=== PATIENT | male | born 1935 | race Caucasian/White ===

== ENCOUNTER → 2016-08-15 | Outpatient (CLI) | payer OTHER ==
[~2016-08-15] MED LIST: AMLO-114 PO; GLUC1TAB8 PO; IBUP-1428 PO; LOSA1TAB38 PO; NF656 TD; TRIA37.5 PO; ULT/50 PO
[2016-08-15 13:41] LABS: ESTIMATED AVERAGE GLUCOSE 123 mg/dl; HA1C FLAG Normal (Normal)
[2016-08-15 15:57] LABS: ALT/SGPT 33 U/L (12-78); AST/SGOT 20 U/L (15-37); BLOOD UREA NITROGEN 17 mg/dl (7-18); BUN/CREATININE RATIO 16.7 (10-20); CALCIUM 9.3 mg/dl (8.5-10.1); CARBON DIOXIDE 28 mmol/L (21-32); CHLORIDE 105 mmol/L (98-107); GLUCOSE 95 mg/dl (70-99); POTASSIUM 3.8 mmol/L (3.5-5.1); SODIUM 141 mmol/L (136-145)
[2016-08-15 16:04] LABS: CHOLESTEROL 197 mg/dl (0-200); CHOLESTEROL/HDL RATIO 4.8; HDL CHOLESTEROL 41 mg/dl; LDL CHOLESTEROL CALCULATED 139 mg/dl; TRIGLYCERIDES 85 mg/dl (0-150); VERY LOW DENSITY LIPOPROT CALC 17 mg/dl
--- NOTE | 2016-08-21 10:16 | CODING QUERY MEDICAL NECESSITY ---
SUPPORTING DIAGNOSIS NEEDED A supporting diagnosis is required for the test/procedure performed on this patient in order for us to be reimbursed by the patient's insurance. Please provide a supporting diagnosis for the following test/procedure listed below next to the test name along with your signature. *If there is no additional diagnosis for this patient that would support the following test/procedure please document that below next to the test/procedure. Test(s)/Procedure(s) that require a supporting diagnosis: DOS 08/15 * Hba1c DIAGNOSIS: Provider Signature: Date: Thank you Meka Jiménez Health Information Management Once completed, please kindly fax back to [phone] For questions please call [phone]
== END | disposition home or self-care (01) ==
LOC: C.LABMFLN 13:44
PROVIDERS: ATTEND Internal Medicine
DX: R97.20 Elevated prostate specific antigen [PSA] (principal); R73.03 Prediabetes; E03.9 Hypothyroidism, unspecified; E78.5 Hyperlipidemia, unspecified

== ENCOUNTER → 2016-11-28 | Outpatient (CLI) | payer OTHER ==
--- NOTE | 2016-11-28 10:24 | DIAGNOSTIC IMAGING REPORT ---
LUMBAR SPINE 5 VIEWS HISTORY: LUMBAGO COMPARISON: Lumbar spine MRI 09/20/2015. FINDINGS: There is no fracture. There is 5 mm of retrolisthesis of L3 on L4, unchanged. Mild disc space narrowing at L1-L2. Moderate disc space narrowing at L2-L3. Severe disc space narrowing at L3-L4. There is partial fusion of the L4-L5 vertebral bodies. Multiple endplate osteophytes are again noted. Moderate facet degenerative changes are again noted within the lower lumbar spine. IMPRESSION: No fractures within the lumbar spine. No change in the multilevel spondylitic changes. Electronically signed by: Derrek Camarillo M.D. 11/28/2016 10:22 AM Dictated Date/Time: 11/28/2016 10:19 AM
== END | disposition home or self-care (01) ==
LOC: C.RADBC 09:40
PROVIDERS: ATTEND Physician Assistant Medical
DX: M54.5 Low back pain (principal)

== ENCOUNTER → 2017-08-23 | Outpatient (CLI) | payer OTHER ==
[~2017-08-23] MED LIST changes: -ULT/50 PO
[2017-08-23 13:33] LABS: ALT/SGPT 39 U/L (12-78); AST/SGOT 20 U/L (15-37); BLOOD UREA NITROGEN 21 mg/dl (7-18); CALCIUM 9.1 mg/dl (8.5-10.1); CARBON DIOXIDE 31 mmol/L (21-32); CREATININE 1.04 mg/dl (0.60-1.40); GLUCOSE 92 mg/dl (70-99); POTASSIUM 3.5 mmol/L (3.5-5.1); SODIUM 138 mmol/L (136-145)
[2017-08-23 13:43] LABS: CHOLESTEROL 202 mg/dl (0-200); LDL CHOLESTEROL CALCULATED 148 mg/dl
== END | disposition home or self-care (01) ==
LOC: C.LABMFLN 08:05
PROVIDERS: ATTEND Internal Medicine
DX: E78.5 Hyperlipidemia, unspecified (principal); R97.20 Elevated prostate specific antigen [PSA]; I10 Essential (primary) hypertension; E03.9 Hypothyroidism, unspecified

== ENCOUNTER 2017-12-07 08:18 | Emergency (ER) | payer OTHER ==
[~2017-12-07] VITALS: Ht 177.8 cm; Wt 95.4 kg
[~2017-12-07 08:18] MED LIST changes: -AMLO-114 PO; +AMLO10TA3 PO
[2017-12-07 08:23] VITALS: TEMP 36.5; Ht 177.8 cm; Wt 95.4 kg
[2017-12-07] MEDS ORDERED: TRAZ50TA35 PO (08:58)
[2017-12-07] MEDS ORDERED: OMEGCAP2 PO (08:58)
[2017-12-07] MEDS ORDERED: IBUP-1450 PO (08:58)
[2017-12-07] MEDS ORDERED: RANI150T3 PO (08:58)
[2017-12-07] MEDS ORDERED: LDDP5 TD (08:58)
[2017-12-07] MEDS ORDERED: RED600TA PO (08:58)
--- NOTE | 2017-12-07 10:04 | DIAGNOSTIC IMAGING REPORT ---
HEAD WITHOUT CONTRAST (CT) CT DOSE: 1922.77 mGy.cm HISTORY: Trauma. Mental status change. fall off 20 ft ladder; struck head TECHNIQUE: Multiaxial CT images of the head were performed without the use of intravenous contrast. A dose lowering technique was utilized adhering to the principles of ALARA. Comparison: None. Findings: The paranasal sinuses and mastoid air cells are clear. The calvarium and skull base are intact. The ventricles and sulci are within normal limits. There is no mass, hematoma, midline shift, or acute infarct. Small metallic pellet within the subcutaneous tissues anterior to the midline frontal region. Impression: No acute intracranial abnormality. Small metallic pellet anterior to the midline frontal region within the subcutaneous fat. The above report was generated using voice recognition software. It may contain grammatical, syntax or spelling errors. Electronically signed by: Stu Senior M.D. 12/07/2017 10:03 AM Dictated Date/Time: 12/07/2017 10:00 AM
--- NOTE | 2017-12-07 10:11 | DIAGNOSTIC IMAGING REPORT ---
CERVICAL SPINE W/O CT DOSE: HISTORY: . Pain. same TECHNIQUE: Multiaxial CT images of the cervical spine were performed and reformatted in the sagittal and coronal plane without the use of contrast. A dose lowering technique was utilized adhering to the principles of ALARA. COMPARISON: None. FINDINGS: No fractures. No subluxation. Prevertebral soft tissues and the C1-C2 interval are intact. No pneumothorax. IMPRESSION: No fractures within the cervical spine. Considerable degenerative change throughout The above report was generated using voice recognition software. It may contain grammatical, syntax or spelling errors. Electronically signed by: Stu Senior M.D. 12/07/2017 10:10 AM Dictated Date/Time: 12/07/2017 10:08 AM
--- NOTE | 2017-12-07 10:21 | DIAGNOSTIC IMAGING REPORT ---
LUMBAR SPINE WITHOUT CLINICAL HISTORY: 82 years-old Male presenting with fall from 20 feet, low back pain, head injury. TECHNIQUE: Multidetector CT of the lumbar spine was performed without the use of intravenous contrast. IV contrast: None. A dose lowering technique was used consistent with the principles of ALARA (as low as reasonably achievable). COMPARISON: MR from 2016. CT DOSE (mGy.cm): The estimated cumulative dose is 1922.77. FINDINGS: Professor Of Nursing topogram: Unremarkable. Slight kyphotic deformity at L1-2. Otherwise normal lumbar lordosis. Vertebral bodies maintain normal height. Several Schmorl's nodes and degenerative change evident at nearly every end plate to varying degrees. Slight retrolisthesis of L3 on L4. This is unchanged from prior. Intervertebral disc height loss noted at L2-3 through L4-5 with vacuum disc phenomenon at L1-2 and L5-S1. No acute fracture or subluxation. Additional multilevel degenerative changes further detailed below: L1-2: Facet arthropathy greater on the right. Disc osteophyte complex mildly effaces the ventral thecal sac. Moderate right and mild left osseous neural foraminal narrowing. L2-3: No significant osseous spinal canal or neural foraminal narrowing. L3-4: Retrolisthesis of L4 results in effacement of the ventral thecal sac. Additionally there is resultant moderate bilateral neural foraminal narrowing. L4-5: Disc osteophyte complex and facet arthropathy results in moderate bilateral neural foraminal narrowing. No significant osseous spinal canal narrowing. L5-S1: Bony spurring arising from facet arthropathy greater on the right with resultant mild to moderate right neural foraminal narrowing. Paraspinal musculature within normal limits. Remaining visualized soft tissues remarkable for atherosclerosis. Nonspecific subcutaneous edema in the lumbar region. IMPRESSION: 1. No acute osseous injury. 2. Multilevel degenerative changes. Electronically signed by: Fidel Pleitez M.D. 12/07/2017 10:19 AM Dictated Date/Time: 12/07/2017 10:07 AM
--- NOTE | 2017-12-07 10:32 | DIAGNOSTIC IMAGING REPORT ---
R FOREARM 2 VIEWS ROUTINE CLINICAL HISTORY: same trauma. Pain. COMPARISON: None. DISCUSSION: No acute abnormality of the radius and ulna. Small osteophyte projecting from the posterior aspect of the proximal ulna. Soft tissue vascular calcification right findings of the medial calcific epicondylitis of the right elbow. Degenerative change of the right wrist. There is no evidence for soft tissue swelling. IMPRESSION: Degenerative change. No acute process. The above report was generated using voice recognition software. It may contain grammatical, syntax or spelling errors. Electronically signed by: Stu Senior M.D. 12/07/2017 10:30 AM Dictated Date/Time: 12/07/2017 10:30 AM
--- NOTE | 2017-12-07 10:33 | DIAGNOSTIC IMAGING REPORT ---
R ANKLE MIN 3 VIEWS ROUTINE CLINICAL HISTORY: 82 years-old Male presenting with fall from ladder, right ankle pain. TECHNIQUE: Frontal, mortise, and lateral views of the right ankle were obtained. COMPARISON: None. FINDINGS: Advanced degenerative changes of the ankle mortise. Ankle mortise remains congruent. There is joint space loss at the ankle with subchondral sclerosis and osteophytosis. Prominent enthesophyte at the origin of the plantar fascia and small enthesophyte at the insertion of the Achilles tendon. No acute fracture or malalignment. Atherosclerosis noted. Mild diffuse soft tissue swelling suggested. IMPRESSION: 1. No acute osseous injury. 2. Advanced degenerative changes of the ankle. Electronically signed by: Fidel Pleitez M.D. 12/07/2017 10:32 AM Dictated Date/Time: 12/07/2017 10:29 AM
--- NOTE | 2017-12-07 10:37 | DIAGNOSTIC IMAGING REPORT ---
R RIBS UNILATERAL WITH PA CHEST CLINICAL HISTORY: 82 years-old Male presenting with fall from ladder, right rib pain. TECHNIQUE: Frontal view of the chest as well as frontal and oblique views of the right ribs were obtained. COMPARISON: Chest x-ray from 09/16/2013. FINDINGS: Atherosclerosis of aortic arch. Cardiac silhouette mildly enlarged. Prominence of pulmonary vasculature mildly low lung volumes. Vague bibasilar opacities. No large pleural effusion or pneumothorax. Degenerative changes of the spine and bilateral shoulders. Moderate stool burden in the colon. Minimally displaced fracture of the right lateral seventh rib. No additional rib fracture is evident. IMPRESSION: 1. Minimally displaced fracture of the right lateral seventh rib. 2. Bibasilar atelectasis suspected. Electronically signed by: Fidel Pleitez M.D. 12/07/2017 10:36 AM Dictated Date/Time: 12/07/2017 10:32 AM
--- NOTE | 2017-12-07 10:50 | EMERGENCY ROOM VISIT NOTE ---
ED Visit Note First contact with patient: 08:35 The patient was seen and examined with Michael Ricketts PA-C. I agree with the history, physical and findings. Please see the note for disposition and details.
[2017-12-07] MEDS ORDERED: ACET300T3 PO (11:01)
[2017-12-07 11:04] VITALS: BP 156/74; PULSE 52; O2SAT 92
--- NOTE | 2017-12-08 06:02 | EMERGENCY ROOM VISIT NOTE ---
ED Visit Note First contact with patient: 08:35 Chief Complaint: Fall. History of Present Illness: Mr. Joiner is an 82-year-old white male who ambulates into the ED accompanied by his complaining of injuries he sustained in a fall. Patient reports 2 days ago he was on a 20 foot ladder at his house. The ladder gave way and he fell. He reports he initially fell into a tree and then onto the ground. He reports during the fall he landed on the right side of his and struck his head on the ground. He reports at the time of the fall he had no loss of consciousness. He reports he was able to get up and walk into the house. He reports he came in today because he has been having worsening right-sided rib pain, right arm and right ankle pain. With questioning he additionally complained of neck pain and lower back pain; although he does admit that he has cervical and lumbar disc disease and has not noted a significant increase in pain in these areas. Currently he reports his most severe pain is right lateral rib pain. He describes this as a sharp sensation. He rates his discomfort 9/10. His pain is nonradiating. His pain worsens with palpation and deep inspiration. He has not identified any alleviating factors related to the pain. He has not had any medication for pain prior to arrival at the hospital. He denies elena shortness of breath but does report the pain makes it difficult to breathe. Additionally he complains of right forearm pain over the posterior aspect of the forearm. He describes this as a sharp sensation. He rates this discomfort 5/10. His pain is nonradiating. His pain worsens with palpation of the forearm. He has not identified any alleviating factors related to the forearm. Associated with his pain he reports he has noted a soft tissue injury in that area. Additionally he complains of lateral right ankle pain over the malleolus. He describes this as an achy sensation. He rates his discomfort 5/10. His pain is nonradiating. His pain slightly worsens with palpation and weightbearing. He has not identified any alleviating factors related to the pain. Additionally he complains of cervical and lumbar spine pain. This is diffusely throughout the spine with prominence in the paraspinous musculatures. He describes this as an achy sensation. He did not rates this discomfort his pain worsens minimally with flexion of the cervical spine and cervical and lumbar pain with palpation. Neither of these pains are radiating. Additionally he reported after his fall he noticed a large lump on the parietal area of the right scalp. He did report he put ice on this area and the lump has subsequently resolved. He denies headache, dizziness, lightheadedness, visual changes, hearing changes , difficulty speaking, difficulty swallowing, difficulty coordinating body movements, thoracic back pain, wheezing, hemoptysis, chest pain, abdominal pain , nausea, vomiting, decreased appetite, bloody stools, urinary symptoms, hematuria, bilateral shoulder pain, wrist pain, elbow pain, hand pain, hip pain , knee pain and foot pain and there is no weakness, numbness or tingling throughout the extremities. Review of Systems: As noted above in history of present illness. All body systems were reviewed and found to be negative as noted above. Past Medical History: As previously noted, hypertension, osteoarthritis. Current Medications: Norvasc, Dyazide, Cozaar, glucosamine, ibuprofen, Zantac, trazodone, fish oil and Lidoderm patches. Allergies to Medications: Morphine. Social History: Patient is currently retired; he lives with his and feels safe in his home environment; he denies tobacco use. Physical Examination: Vital Signs: Date Time Temp Pulse Resp B/P (MAP) Pulse Ox O2 Delivery O2 Flow Rate FiO2 12/07/17 11:04 52 16 156/74 92 Room Air 12/07/17 10:36 107 12/07/17 08:23 36.5 57 20 124/74 94 Room Air GENERAL: 82-year-old male in mild to moderate distress due to pain, nontoxic- appearing, afebrile and hemodynamically stable. NEUROLOGICAL: Awake, alert and oriented to person, place and time. Answering questions appropriately and following commands. Normal gait. Good hand eye coordination. No focal motor or sensory deficits. Cranial nerves II through XII grossly intact. Romberg test negative. Pronator drift test negative. Good short-term and long-term recall. SKIN: Warm, dry and pink. Skull: Right parietal contusion. Right forearm abrasion without signs of infection. HEENT: Normocephalic. Contusion as noted above. Mild tenderness in the right parietal area without bony deformity or crepitus. No raccoons eyes or jackson signs. No drainage from the ears of the nostrils face: No bony tenderness, bony deformity, bony crepitus, swelling or ecchymosis. PERRLA. EOMI without nystagmus. Sclera white and conjunctiva pink. No malocclusion. No intraoral trauma. Airway patent. Speech is normal and clear. Trachea midline. No jugular venous distention. BACK: Cervical Spine: Diffuse tenderness throughout the bony structures and paraspinous musculature. I do not appreciate any bony step-offs, deformity, swelling or ecchymosis. I do not appreciate any paraspinous spasm. Thoracic Spine: No bony tenderness, swelling, deformity or step-offs. No paraspinous muscle spasm. Lumbar Spine: Tenderness at the L5 through S1 area of the bony spine. No bony deformity, bony crepitus, step-offs, swelling or ecchymosis. There is also moderate tenderness on the right side of the paraspinous musculature without palpable spasm. Right sided CVA tenderness. THORAX: Lungs sounds are clear to auscultation and equal bilaterally with symmetrical chest wall. No wheezing, rales or rhonchi. Moderate tenderness over ribs 4 through 7 over the lateral right thorax. No bony crepitus, bony deformity or subcutaneous air. When palpating this area patient reports his pain was similar when I percussed his right costovertebral angle. HEART: Regular rate and rhythm. No gallops, rubs or murmurs are appreciated. ABDOMEN: Flat, soft and nontender. Positive bowel sounds in all quadrants. No guarding, rigidity or organomegaly. PELVIS: Stable and nontender to compression and rock. UPPER EXTREMITIES: No gross bony deformities. No tenderness in the shoulders, upper arms, elbows, wrists or hands. On the right forearm patient has the abrasion as noted above. He has moderate tenderness in the mid shaft of the radius in the area of his abrasion. I do not appreciate any bony deformity or crepitus. He did have full range of motion of the shoulder, elbow, forearm, wrist and hand. Distal pulses, sensation and capillary refill were intact and equal bilaterally. LOWER EXTREMITIES: No gross bony deformities. No shortening or malrotation. No tenderness over the hips, thighs, knees, lower legs and feet. Patient had mild tenderness over the right lateral malleolus with mild swelling but no ecchymosis. I do not appreciate any laxity of the ligamentous structures. He did have full range of motion of the hips, knees, ankles and feet. Distal pulses, sensation and capillary refill were intact and equal bilaterally. ED Course: Patient is assessed as noted above. Patient's medication list was reviewed. Patient was offered pain medication and refused. Head CT: Was reviewed by myself and read by the radiologist showing no acute intracranial abnormalities or skull fractures. An incidental finding was found patient had a metallic pellet in the mid frontal area not related to this incident. Cervical Spine CT: Was reviewed by myself and read by the radiologist showing moderate degenerative changes but no acute fractures or subluxations. Lumbar Spine CT: Was reviewed by myself and read by the radiologist showing moderate degenerative no acute fractures or subluxations. Right Forearm X-Rays: Were read by myself and the radiologist did note fractures or dislocations were noted. PA Chest and Right Rib X-Rays: Was read by myself and the radiologist showing no acute infiltrates, effusions or pneumothorax. Bilateral atelectasis was noted. There was a minimally displaced lateral right seventh rib fracture. Right Ankle X-Rays: Were read by myself and the radiologist and shows no acute fractures or dislocations. Patient's case was reviewed with Dr. Pelaez; he independently assessed the patient and we agreed on diagnostic approach, treatment, disposition and plan. Additionally he performed a FAST ultrasound examination and reported that it was normal. See his notes. Patient was educated about today's findings and instructed on his treatment plan ; he verbalized understanding and agreement with plan. Clinical Impression: Fall. Right seventh rib fracture. Scalp contusion. Cervical and lumbar back pain. Right forearm abrasion. Right ankle pain. Disposition: Patient discharged home in stable condition accompanied by his ; prior to departure he was reassessed and subjectively reported he was feeling better and continue to rate his rib pain 7/10. Plan: Patient was placed on a sliding pain scale including ibuprofen, acetaminophen and Tylenol 3 for pain; his name was checked on state database and no red flags were noted and he was given appropriate narcotic precautions. Wound care and signs of infections were discussed with the patient. Patient was given an incentive spirometer and instructed on its use. Patient and are educated on signs of head injury. Patient was encouraged to follow-up with his primary care provider for recheck in 2-4 days. Patient was encouraged return to the ED for worsening/uncontrolled pain, any signs of head injury, any shortness of breath or coughing up blood, signs of infection or any new/concerning symptoms.
== END 2017-12-07 11:20 | disposition home or self-care (01) ==
LOC: C.EDB 08:22
DX: S22.31XA Fracture of one rib, right side, initial encounter for closed fracture (principal); S00.03XA Contusion of scalp, initial encounter; S50.811A Abrasion of right forearm, initial encounter; M25.571 Pain in right ankle and joints of right foot; W11.XXXA Fall on and from ladder, initial encounter; M50.90 Cervical disc disorder, unspecified, unspecified cervical region; M51.86 Other intervertebral disc disorders, lumbar region; I10 Essential (primary) hypertension; M19.90 Unspecified osteoarthritis, unspecified site; Z79.899 Other long term (current) drug therapy; Z88.5 Allergy status to narcotic agent